=== PATIENT | male | born 2005 | race Caucasian/White ===

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

== ENCOUNTER 2025-03-23 02:18 | Outpatient (CLI) | payer MEDICAID, SELFPAY ==
[2025-03-23 08:26] LABS: Abs Immature Grans 0.03 10^3/uL (0.0-0.06); HCT 46.8 % (40.0-50.0); HGB 15.5 g/dL (13.5-17.5); Immature Grans % 0.4 %; MCH 28.4 pg (27.0-33.0); MCHC 33.1 % (32.0-36.0); MCV 86 fL (80-95); MPV 10.4 fL (8.0-11.0); Platelet Count 228 10^3/uL (130-400); RBC 5.45 10^6/uL (4.36-5.78); RDW 12.5 % (11.8-14.1); RDW-SD 38.9 fL; WBC 7.92 10^3/uL (4.4-10.8)
[2025-03-23 09:03] LABS: ALT 55 U/L (16-63); AST 34 U/L (15-37); Albumin 4.1 g/dL (3.4-5.0); Alkaline Phosphatase 89 U/L (46-116); Anion Gap 6.8 mmol/L (3-11); BUN 16 mg/dL (7-18); Bilirubin, Total 0.5 mg/dL (0.2-1.0); CO2 32.2 mmol/L (21.0-32.0); Calcium 9.6 mg/dL (8.5-10.1); Chloride 102 mmol/L (98-107); Estimated GFR 110.50 (mL/min/1.73m2); Glucose 69 mg/dL (74-106); Potassium 4.5 mmol/L (3.5-5.1); Sodium 141 mmol/L (136-145); TSH (W/Ref FT4) 1.18 uIU/mL (0.36-3.74); Total Protein 7.7 g/dL (6.4-8.2)
[2025-03-24 12:35] LABS: Lyme Ab w Rflx to Lyme Confirm Negative (Negative)
[2025-04-01 15:37] LABS: Testosterone, Free 61.1 pg/mL (35.0-155.0)
== END 2025-03-23 02:19 | disposition home or self-care (01) ==
LOC: LBO 02:18
PROVIDERS: PCP Family Medicine; Visit Provider Student in an Organized Health Care Education/Training Program
DX: R53.83 Other fatigue (principal)
CPT/HCPCS: 36415; 80053; 84402; 84403; 84443; 85025; 86618